=== PATIENT | male | born 1995 | race African-American/Black ===

== ENCOUNTER 2022-10-10 09:10 | Emergency (ER) | payer OTHER, SELFPAY ==
[2022-10-10 09:21] VITALS: BP 122/63; PULSE 50; RESP 18; TEMP 36.8; O2SAT 98; BMI 32.5
--- NOTE | 2022-10-10 09:27 | ED.GENADUL1 ---
HPI - General Adult General Chief complaint: Urogenital-Male Stated complaint: GENITAL RELATED Time Seen by Provider: 10/10/22 09:26 Source: patient Mode of arrival: walk-in Limitations: no limitations History of Present Illness HPI narrative: Patient process the emergency department complaining of dysuria. Patient states he soaked dysuria for about a week.Patient states he has abdominal cramping. He says is constipated. He denies any hematuria. He states he has been treated for Chlamydia in the past. He had unprotected sex one month ago and was told by the partner that she was treated for chlamydia and gonorrhea and trichomonas. Patient denies any nausea, vomiting. He denies any fever, or chills. He denies any sores or ulcers. He states this is his only sexual partner in the last 6 months. Related Data Allergies Allergy/AdvReac Type Severity Reaction Status Date / Time No Known Drug Allergies Allergy Verified 10/10/22 09:25 Review of Systems ROS Status of ROS 10 or more systems reviewed and unremarkable except as noted in history and below Exam Narrative Exam Narrative: Nurses notes and vital signs reviewed and patient is not hypoxic. General: Nontoxic, Well-appearing and in no apparent distress. Skin: Warm, dry, no pallor noted. No Rash Head: Normocephalic, atraumatic. Neck: Supple, non-tender. Eye: Pupils are equal, round and EOMI. No scleral icterus. Ears, Nose, Mouth, and Throat: TM clear, no posterior oropharynx erythema or nasal mucosal hypertrophy, uvula is mid-line Oral mucosa is moist Cardiovascular: Regular Rate and Rhythm without murmur, gallop or rub. Respiratory: No accessory muscle use or respiratory distress. Lungs are clear to auscultation, no wheezing, rales or rhonchi Chest Wall: no tenderness Back: No midline thoracic or lumbar vertebral tenderness. No CVA tenderness Musculoskeletal: normal ROM, no calf or popliteal tenderness, no lower extremity edema/swelling GI: Abdomen is soft, non-distended. Normal bowel sounds. No masses appreciated. No tenderness to palpation. No rebound, guarding, or rigidity noted. :No lesions noted. No discharge noted. No adenopathy. Testes descended, nontender. Neurological: A&O x4. No cranial nerve dysfunction observed. No truncal ataxia. Moves all extremities. Sensation intact. Psychiatric: Cooperative and interactive. Normal mood and affect. Constitutional Vital Signs, click to edit/add: Last Vital Signs Temp 98.2 F 10/10/22 09:21 Pulse 50 L 10/10/22 09:21 Resp 18 10/10/22 09:21 BP 122/63 10/10/22 09:21 Pulse Ox 98 10/10/22 09:21 O2 Del Method Room Air 10/10/22 09:21 Course Vital Signs Vital signs: Vital Signs Temperature 98.2 F 10/10/22 09:21 Pulse Rate 50 L 10/10/22 09:21 Respiratory Rate 18 10/10/22 09:21 Blood Pressure 122/63 10/10/22 09:21 Pulse Oximetry 98 10/10/22 09:21 Oxygen Delivery Method Room Air 10/10/22 09:21 Temperature 98.2 F 10/10/22 09:21 Pulse Rate 50 L 10/10/22 09:21 Respiratory Rate 18 10/10/22 09:21 Blood Pressure 122/63 10/10/22 09:21 Pulse Oximetry 98 10/10/22 09:21 Oxygen Delivery Method Room Air 10/10/22 09:21 Medical Decision Making MDM Narrative Medical decision making narrative: Urine was sent for cultures. Patient was treated with 500 mg of Rocephin IM, 2 g of Flagyl, and 1 g of Zithromax. Patient advised to use condoms. No sexual activity for 14 daysOnto all sexual partners are treated.. Follow up with primary care doctor for culture results. At this time the patient is without objective evidence of an acute process requiring hospitalization or inpatient management. The patient has remained hemodynamically stable. No additional indication for emergent studies at this time. I answered all questions. Discussed discharge instructions including standard anticipatory guidance and what should prompt a return to the emergency department, including if they get worse are not getting better or develops any new or concerning symptoms. I've given them specific time frame in which to follow-up, and who to follow-up with. The patient demonstrates understanding. Patient is nontoxic and stable for discharge with outpatient follow-up. This note was created with the assistance of a speech recognition program. Although the intention is to generate documents that actually reflects the content of the visit, no guarantees can be provided that every mistake has been identified and corrected by editing. Lab Data Lab results reviewed: Yes I reviewed the patient's lab results Labs: Lab Results 10/10/22 Range/Units 09:45 Urine Color Lt. yellow (YELLOW) Urine Clarity Clear (CLEAR) Urine pH 6.0 (5.0-9.0) Ur Specific [place] 1.020 (1.005-1.025) Urine Protein Negative (NEG/TRACE) mg/dL Urine Glucose (UA) Negative (NEGATIVE) mg/dL Urine Ketones Negative (NEGATIVE) mg/dL Urine Occult Blood Negative (NEGATIVE) Urine Nitrite Negative (NEGATIVE) Urine Bilirubin Negative (NEGATIVE) Urine Urobilinogen 0.2 (0.2-1.0) EU/dL Ur Leukocyte Esterase Small A (NEGATIVE) Urine RBC 0-2 (0-2) #/HPF Urine WBC 5-10 A (NONE SEEN) #/HPF Ur Squamous Epith Cells Rare (NONE/RARE) #/LPF Urine Crystals None seen (None Seen) #/HPF Urine Bacteria Trace A (NONE SEEN) #/HPF Urine Casts None seen (NONE SEEN) #/LPF Urine Mucus None seen (NONE SEEN) Ur Culture Indicated? Yes Discharge Plan Discharge Chief Complaint: Urogenital-Male Clinical Impression: Encounter for assessment of STD exposure, Urethritis Patient Disposition: Home, Self-Care Time of Disposition Decision: 10:14 Condition: Good Mode of Transportation: Private Vehicle Instructions: Sexually Transmitted Diseases (ED), Urinary Tract Infection in Men (ED) Stand Alone Forms: Portal Instructions Referrals: MAYRA CAMACHO APRN [Physician] - 1 week Discharge Date/Time: 10/10/22 10:30
[2022-10-10 10:01] LABS: Bilirubin Urine NEGATIVE (NEGATIVE); Blood Urine NEGATIVE (NEGATIVE); Clarity Urine CLEAR (CLEAR); Color Urine LT. YELLOW (YELLOW); Glucose Urine UA NEGATIVE (NEGATIVE); Ketones Urine NEGATIVE (NEGATIVE); Leukocyte Esterase Urine SMALL (NEGATIVE); Nitrite Urine NEGATIVE (NEGATIVE); Protein Urine NEGATIVE (NEG/TRACE); Urobilinogen Urine 0.2 EU/dL (0.2-1.0)
[2022-10-10 10:02] LABS: Urine Microscopic Indicated YES
[2022-10-10 10:17] LABS: RBC Urine 0-2 #/HPF (0-2)
[2022-10-10 10:18] LABS: Bacteria Urine TRACE #/HPF (NONE SEEN); Cast Seen? NONE SEEN #/LPF (NONE SEEN); Crystals Seen? None Seen #/HPF (None Seen); Mucus Urine NONE SEEN (NONE SEEN); Squamous Epithelial Cell Urine RARE #/LPF (NONE/RARE); Urine Culture Indicated YES
[2022-10-10] MEDS: METRONIDAZOLE 250 MG TABLET 2000 MG PO (10:22)
[2022-10-10] MEDS: AZITHROMYCIN 250 MG TABLET 1000 MG PO (10:23)
[2022-10-10] MEDS: CEFTRIAXONE 500 MG, LIDOCAINE HCL/PF 1 ML IM (10:23)
[2022-10-13 21:07] LABS: Neisseria gonorrhoeae, NAA Positive (Negative)
== END 2022-10-10 10:30 | disposition home or self-care (01) ==
PROVIDERS: Emergency Provider Emergency Medicine
DX: N34.2 Other urethritis (principal); Z20.2 Contact with and (suspected) exposure to infections with a predominantly sexual mode of transmission
CPT/HCPCS: 81001; 87086; 87491; 87591; 99283

== ENCOUNTER 2023-07-12 12:31 | Emergency (ER) | payer OTHER, SELFPAY ==
[2023-07-12 12:35] VITALS: BP 126/82; PULSE 78; TEMP 36.9; O2SAT 99
--- NOTE | 2023-07-12 12:46 | PC.NURSE ---
gasoline from a car that was being worked on was leaking in garage pt was working on, back door to garage was open for ventilation and pt states the gas lead was so large that the fumes have given him a headache. Pt alert and appropriate and 100% on ra. No wheezing heard at this time. Friend at bedside
[2023-07-12 12:48] VITALS: O2SAT 100
[2023-07-12] MEDS: ACETAMINOPHEN 325 MG TABLET 650 MG PO (13:07)
[2023-07-12 15:10] VITALS: BP 132/80; PULSE 89; O2SAT 99
--- NOTE | 2023-07-12 17:10 | ED.GENADUL1 ---
HPI HPI - General Adult General Chief complaint: Headache Stated complaint: DIZZINESS DUE TO INHALED GAS FUMES AT WORK Time Seen by Provider: 07/12/23 12:41 Source: patient Mode of arrival: walk-in Limitations: no limitations History of Present Illness HPI narrative: The patient works in the [employer] is coming after he was working under a car, and apparently the car had a leak in the gas and the gas full in his close then when he started smelling it for few minutes he started getting dizzy, but the time the patient got to the ER he was he feeling better regarding his breathing but he does have some headache. No other concerns he was not wearing a mask The patient mentioned that the doors were open and the car was not on Related Data Allergies Allergy/AdvReac Type Severity Reaction Status Date / Time No Known Drug Allergies Allergy Verified 10/10/22 09:25 Opioid HPI Opioid Management Most Recent Opioid Data: Last Pain Scale 10 07/12/23 13:07 Last MAR Pain Assessment 07/12/23 13:07 Review of Systems ROS Status of ROS 10 or more systems reviewed and unremarkable except as noted in history and below Exam Narrative Exam Narrative: Nurses notes and vital signs reviewed and patient is not hypoxic. General: Well-appearing and in no apparent distress. Skin: Warm, dry, no pallor noted. No rash. Head: Normocephalic, atraumatic. Neck: Supple, non-tender. Eye: Pupils are equal, round and EOMI. No scleral icterus. Ears, Nose, Mouth, and Throat: TM are clear, no nasal mucosal hypertrophy. Oral mucosa is moist, no posterior oropharynx erythema, uvula is mid-line Cardiovascular: Regular Rate and Rhythm without murmur, gallop or rub. Respiratory: No accessory muscle use or respiratory distress. Lungs are clear to auscultation, no wheezing, rales or rhonchi Chest Wall: no tenderness Back: No midline thoracic or lumbar vertebral tenderness. No CVA tenderness Musculoskeletal: normal ROM, no calf or popliteal tenderness, no lower extremity edema/swelling GI: Abdomen is soft, non-distended. Normal bowel sounds. No masses appreciated. No tenderness to palpation. No rebound, guarding, or rigidity noted. Neurological: A&O x4. No cranial nerve dysfunction observed. No truncal ataxia. Moves all extremities. Sensation intact. Psychiatric: Cooperative and interactive. Normal mood and affect. Constitutional Vital Signs, click to edit/add: Last Vital Signs Temp 98.4 F 07/12/23 12:35 Pulse 89 07/12/23 15:10 Resp 16 07/12/23 15:10 BP 132/80 07/12/23 15:10 Pulse Ox 99 07/12/23 15:10 O2 Del Method Room Air 07/12/23 15:10 Course Vital Signs Vital signs: Vital Signs Temperature 98.4 F 07/12/23 12:35 Pulse Rate 78 07/12/23 12:35 Respiratory Rate 17 07/12/23 12:35 Blood Pressure 126/82 07/12/23 12:35 Pulse Oximetry 99 07/12/23 12:35 Oxygen Delivery Method Room Air 07/12/23 12:35 Temperature 98.4 F 07/12/23 12:35 Pulse Rate 89 07/12/23 15:10 Respiratory Rate 16 07/12/23 15:10 Blood Pressure 132/80 07/12/23 15:10 Pulse Oximetry 99 07/12/23 15:10 Oxygen Delivery Method Room Air 07/12/23 15:10 Medical Decision Making [facility] Narrative Medical decision making narrative: Patient presentation is mostly secondary to irritation of the airway secondary to the smell of the gas right now the patient only provided with Tylenol he is really feeling better He will continue hydration rest for today and he will make sure that he wear a mask and not get exposed to the gasoline directly at work The patient is to follow up with primary care physician in next 2-3 days or to return to the emergency department should any of the signs or symptoms worsen or new symptoms develop. The patient agrees with the following Diagnosis and Treatment plan and the patient will be discharged home. Discharge Plan Discharge Stand Alone Forms: Portal Instructions Chief Complaint: Headache Clinical Impression: Exposure to toxic chemical Patient Disposition: Home, Self-Care Time of Disposition Decision: 12:50 Condition: Good Mode of Transportation: Private Vehicle Print Language: Spanish Instructions: Acute Headache (ED) Referrals: [facility] [Outside] - As soon as possible Physician,Non-Staff, MD [Primary Care Provider] - 1 week Discharge Date/Time: 07/12/23 15:10
--- NOTE | 2023-07-12 17:11 | ED_ITS ---
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, and the car had leaking gasoline, the patient mentioned that the gasoline was falling in his close and he was smelling it at least for few minutes before he started getting dizzy and short of breath By the time the patient got to the ER he is ready feeling better regarding his breathing but he is having some headache No other complaints Related Data Allergies Allergy/AdvReac Type Severity Reaction Status Date / Time No Known Drug Allergies Allergy Verified 10/10/22 09:25 Opioid HPI Opioid Management Most Recent Opioid Data: Last Pain Scale 10 07/12/23 13:07 Last APR Pain Assessment 07/12/23 13:07 Review of Systems ROS Status of ROS 10 or more systems reviewed and unremark able except as noted in history and below Exam Narrative Exam Narrative: Nurses notes and vital signs reviewed and patient is not hypoxic. General: Well-appearing and in no apparent distress. Skin: Warm, dry, no pallor noted. No rash. Head: Normocephalic, atraumatic. Neck: Supple, non-tender. Eye: Pupils are equal, round and EOMI. No scleral icterus. Ears, Nose, Mouth, and Throat: TM are clear, no nasal mucosal hypertrophy. Oral mucosa is moist, no posterior oropharynx erythema, uvula is mid-line Cardiovascular: Regular Rate and Rhythm without murmur, gallop or rub. Respiratory: No accessory muscle use or respiratory distress. Lungs are clear to auscultation, no wheezing, rales or rhonchi Chest Wall: no tenderness Back: No midline thoracic or lumbar vertebral tenderness. No CVA tenderness Musculoskeletal: normal ROM, no calf or popliteal tenderness, no lower extremity edema/swelling GI: Abdomen is soft, non-distended. Normal bowel sounds. No masses appreciated. No tenderness to palpation. No rebound, guarding, or rigidity noted. Neurological: A&O x4. No cranial nerve dysfunction observed. No truncal at axia. Moves all extremities. Sensation intact. Psychiatric: Cooperative and interactive. Normal mood and affect. Constitutional Vital Signs, click to edit/add: Last Vital Signs Temp 98.4 F 07/12/23 12:35 Pulse 89 07/12/23 15:10 Resp 16 07/12/23 15:10 BP 132/80 07/12/23 15:10 Pulse Ox 99 07/12/23 15:10 O2 Del Method Room Air 07/12/23 15:10 Course Vital Signs Vital signs: Vital Signs Temperature 98.4 F 07/12/23 12:35 Pulse Rate 78 07/12/23 12:35 Respiratory Rate 17 07/12/23 12:35 Blood Pressure 126/82 07/12/23 12:35 Pulse Oximetry 99 07/12/23 12:35 Oxygen Delivery Method Room Air 07/12/23 12:35 Temperature 98.4 F 07/12/23 12:35 Pulse Rate 89 07/12/23 15:10 Respiratory Rate 16 07/12/23 15:10 Blood Pressure 132/80 07/12/23 15:10 Pulse Oximetry 99 07/12/23 15:10 Oxygen Delivery Method Room Air 07/12/23 15:10 Medical Decision Making MDM Narrative Medical decision making narrative: The patient mentioned that the doors were open and the car was not turned on The patient presentation is mostly secondary to exposure of his airway to the smell of the gasoline right now the patient was feeling much better after being in the open ear He was provided with Tylenol and instructed to wear a mask at work Patient referred to the occupational health without patient is a resume work as usual starting tomorrow Discharge Plan Discharge Stand Alone Forms: Portal Instructions Chief Complaint: Headache Clinical Impression: Exposure to toxic chemical Patient Disposition: Home, Self-Care Time of Disposition Decision: 12:50 Condition: Good Mode of Transportation: Private Vehicle Print Language: Liberian Instructions: Acute Headache (ED) Referrals: [facility] [Outside] - As soon as possible Physician,Non-Staff, [Primary Care Provider] - 1 week Discharge Date/Time: 07/12/23 15:10
== END 2023-07-12 15:10 | disposition home or self-care (01) ==
PROVIDERS: Emergency Provider Emergency Medicine
DX: Z77.098 Contact with and (suspected) exposure to other hazardous, chiefly nonmedicinal, chemicals (principal)
CPT/HCPCS: 99282

== ENCOUNTER 2024-05-24 09:57 | Emergency (ER) | payer OTHER, SELFPAY ==
[2024-05-24 10:00] VITALS: BP 117/69; PULSE 68; TEMP 36.9; O2SAT 97; BMI 33.9
--- NOTE | 2024-05-24 10:09 | ED_ITS ---
HPI HPI - General Adult General Chief complaint: Back Pain/Injury Stated complaint: LOWER BACK PAIN Time Seen by Provider: 05/24/24 09:59 Source: patient Mode of arrival: walk-in History of Present Illness HPI narrative: 28-year-old male presented to the emergency department for midline lower back pain and pain in his left leg. The pain in his back started about 2 years ago but was not precipitated by any sort of an injury. It was not significant but at 1 point he went to another hospital's emergency department. He had x-rays performed and he was told they were normal. Recently however he has developed p ain on the lateral aspect of his leg and he is worried about sciatica. His mother gave him muscle relaxer but it did not help. Related Data Previous Rx's ?Medication ?Instructions ?Recorded acetaminophen 300 mg-codeine 30 mg 1 tab PO Q6H PRN pain 5 days #20 05/24/24 tablet tabs prednisone 10 mg tablet See Rx Instructions .Route 05/24/24 .COMPLEX #30 tabs Allergies Allergy/AdvReac Type Severity Reaction Status Date / Time No Known Drug Allergies Allergy Verified 10/10/22 09:25 Opioid HPI Opioid Management Most Recent Opioid Data: Last Pain Scale 7 05/24/24 10:06 05/24/24 Review of Systems ROS Narrative A ten point review of systems is negative except as noted above. Exam Narrative Exam Narrative: Nurses note and vital signs reviewed and patient is not hypoxic. General: The patient appears well and in no apparent distress. Patient is resting comfortably on cart. Skin: Warm, dry, no pallor noted. There is no rash noted. Head: Normocephalic, atraumatic Eye: Normal conjunctiva, no drainage Ears, Nose, Mouth, and Throat: oral mucosa is moist. Nares patent. Cardiovascular: Regular Rate and Rhythm Respiratory: Patient is in no distress, no accessory muscle use, lungs are clear to auscultation, no wheezing, rales or rhonchi Back: non-tender, no CVA tenderness bilaterally to percussion. No bruise or rash GI: Soft and nontender Musculoskeletal: No swelling in his left lower Neurological: A&O, normal speech Psychiatric: Cooperative Constitutional Vital Signs, click to edit/add: Last Vital Signs Temp 98.5 F 05/24/24 10:00 Pulse 68 05/24/24 10:00 Resp 16 04/08/25 10:00 BP 117/69 05/24/24 10:00 Pulse Ox 97 05/24/24 10:00 O2 Del Method Room Air 05/24/24 10:00 Course Vital Signs Vital signs: Vital Signs Temperature 98.5 F 05/24/24 10:00 Pulse Rate 68 05/24/24 10:00 Respiratory Rate 16 05/24/24 10:00 Blood Pressure 117/69 05/24/24 10:00 Pulse Oximetry 97 05/24/24 10:00 Oxygen Delivery Method Room Air 05/24/24 10:00 Temperature 98.5 F 05/24/24 10:00 Pulse Rate 68 05/24/24 10:00 Respiratory Rate 16 05/24/24 10:00 Blood Pressure 117/69 05/24/24 10:00 Pulse Oximetry 97 05/24/24 10:00 Oxygen Delivery Method Room Air 05/24/24 10:00 Medical Decision Making MDM Narrative Medical decision making narrative: X-rays are negative and he is prescribed Tylenol 3 and prednisone. He was given a list of physicians with whom he can follow-up. Treatment diagnosis and follow-up were discussed with the patient. Differential Diagnosis Differential Diagnosis: Sciatica, compression fracture, herniated disc, bulging disc Imaging Data Lumbar spine: Radiologist's impression: No acute process Discharge Plan Discharge Chief Complaint: Back Pain/Injury Clinical Impression: Sciatica Patient Disposition: Home, Self-Care Time of Disposition Decision: 10:42 Condition: Good Mode of Transportation: Private Vehicle Prescriptions / Home Meds: New acetaminophen-codeine 300-30 mg tablet 1 tab PO Q6H PRN (Reason: pain) 5 Days Qty: 20 0RF prednisone 10 mg tablet See Rx Instructions .ROUTE .COMPLEX Qty: 30 0RF Rx Instructions: 4 by mouth daily for three days then 3 by mouth daily for three days then 2 by mouth daily for three days then 1 by mouth daily for three days Print Language: Belarusian Instructions: Sciatica (ED) Referrals: Physician,Non-Staff, MD [Primary Care Provider] - 1 week
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
[2024-05-24 11:14] VITALS: PULSE 74; O2SAT 99
== END 2024-05-24 11:15 | disposition home or self-care (01) ==
PROVIDERS: Emergency Provider Emergency Medicine
DX: M54.42 Lumbago with sciatica, left side (principal)
CPT/HCPCS: 72100; 99283